=== PATIENT | male | born 1995 | race Caucasian/White ===

== ENCOUNTER 2017-09-22 15:14 | Emergency (ER) | payer BC ==
--- NOTE | 2017-09-22 16:28 | RAD REPORT ---
EXAM DESCRIPTION: CT - CTFB CLINICAL HISTORY: Trauma, facial pain. COMPARISON: None. TECHNIQUE: Axial 2 mm thick images of the face were obtained with sagittal and coronal reconstructio n images. All CT scans are performed using dose optimization technique as appropriate and may include automated exposure control or mA/KV adjustment according to patient size. FINDINGS: No acute facial bone fracture is seen.The mandible is intact. The globes and orbital contents are grossly unremarkable.The paranasal sinuses and mastoids are essen tially clear. IMPRESSION: Negative for facial bone fracture.
--- NOTE | 2017-09-22 16:44 | ER ---
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 Pt denies LOC. Transition of care: patient was not received from another setting of care. Onset of symptoms was September 22, 2017. Initial Sepsis Screen: Does the patient meet any 2 criteria? No. Patient's initial sepsis screen is negative. Does the patient have a suspected source of infection? No. Patient's initial sepsis screen is negative. Care prior to arrival: None. 15:31 Method Of Arrival: Ambulatory la1 15:31 Acuity: MARIA ISABEL 4 la1 Triage Assessment: 16:30 General: Appears in no apparent distress. well developed, well nourished, Behavior is rk2 calm, cooperative. Pain: Complains of pain in face and left side of head and left arm and left forearm. 16:30 Neuro: Level of Consciousness is alert, obeys commands, Oriented to person, place, rk2 time, situation. Respiratory: Airway is patent Respiratory effort is even, unlabored, Respiratory pattern is regular, symmetrical. Derm: Skin is pink, warm \T\ dry. Historical: - Allergies: 15:32 No Known Allergies; la1 - PMHx: 15:32 None; la1 - PSHx: 15:32 None; la1 - Immunization history:: Adult Immunizations. - Social history:: Smoking status: Patient/guardian denies using tobacco, but has a distant history of tobacco abuse. Screenin:30 Abuse screen: Denies threats or abuse. rk2 16:30 Nutritional screening: No deficits noted. Tuberculosis screening: No symptoms or risk rk2 factors identified. Fall Risk None identified. Vital Signs: 15:32 BP 149 / 77; Pulse 97; Resp 15; Temp 98.5; Pulse Ox 100% on R/A; Weight 77.11 kg; la1 Height 5 ft. 8 in. (172.72 cm); 16:30 BP 130 / 67; Pulse 78; Resp 17; Pulse Ox 98% on R/A; rk2 15:32 Body Mass Index 25.85 (77.11 kg, 172.72 cm) ny1 ED Course: 15:15 Patient arrived in ED. mr 15:32 Triage completed. la1 15:32 Arm band placed on left wrist. la1 15:33 Leesa Dubon FNP-C is [facility]. kb 15:33 Josiah Downs MD is Attending Physician. kb 15:34 Kathi Santos, RN is Primary Nurse. rk2 15:51 CT Facial Bones W/O Con Sent. rk2 15:58 CT Facial Bones W/O Con In Process Unspecified. EDMS 15:58 CT completed. Patient moved to CT via wheelchair. Patient moved to radiology. cw1 16:02 X-ray completed. X-ray completed. Patient tolerated procedure well. Patient moved back [facility] from radiology. 16:03 Forearm Left XRAY In Process Unspecified. EDMS 16:30 Patient has correct armband on for positive identification. Bed in low position. Call rk2 light in reach. 17:06 No provider procedures requiring assistance completed. Patient did not have IV access rk2 during this emergency room visit. Administered Medications: No medications were administered Outcome: 16:44 Discharge ordered by . kb 17:06 Discharged to home ambulatory. rk2 17:06 Condition: good 17:06 Discharge instructions given to patient. 17:07 Patient left the ED. rk2 Signatures: Dispatcher [employer] EDNM Leesa Dubon FNP-C FNP-Samina Basilio Rebekah Archer cw1 Giorgio Richards, RN RN la1 Melinda Garcia [facility] Kathi Santos, RN RN rk2
--- NOTE | 2017-09-22 16:44 | EDPHYS ---
Physician Documentation [facility] Name: Eder Andres Age: 22 yrs Sex: Male : 1995 Arrival Date: 09/22/2017 Time: 15:15 Bed 19 Private MD: ED Physician Josiah Downs HPI: 09/22 16:15 This 22 yrs old Male presents to ER via Ambulatory with complaints of Body kb Injuries. 16:15 The patient or guardian complains of contusion, injury, pain, that is acute, swelling, kb tenderness. The complaints affect the left forearm. Context: The problem was sustained at work, resulted from a direct blow, from a heavy object. Onset: The symptoms/episode began/occurred just prior to arrival. Treatment prior to arrival includes: no previous treatment. Modifying factors: The symptoms are alleviated by nothing. the symptoms are aggravated by nothing. Associated signs and symptoms: Pertinent positives: pain, swelling, Pertinent negatives: decreased range of motion, deformity, erythema, fever, nausea, numbness, tingling, vomiting, warmth, weakness. Severity of symptoms: At their worst the symptoms were moderate, in the emergency department the symptoms are unchanged. The patient has not experienced similar symptoms in the past. The patient has not recently seen a physician. Historical: - Allergies: 15:32 No Known Allergies; la1 - PMHx: 15:32 None; la1 - PSHx: 15:32 None; la1 - Immunization history:: Adult Immunizations. - Social history:: Smoking status: Patient/guardian denies using tobacco, but has a distant history of tobacco abuse. ROS: 16:09 Constitutional: Negative for fever, chills, and weight loss, Eyes: Negative for injury, kb pain, redness, and discharge, ENT: Negative for injury, pain, and discharge, Neck: Negative for injury, pain, and swelling, Cardiovascular: Negative for chest pain, palpitations, and edema, Respiratory: Negative for shortness of breath, cough, wheezing, and pleuritic chest pain, Abdomen/GI: Negative for abdominal pain, nausea, vomiting, diarrhea, and constipation, Back: Negative for injury and pain, : Negative for injury, bleeding, discharge, and swelling, Neuro: Negative for headache, weakness, numbness, tingling, and seizure. 16:09 MS/extremity: Positive for injury or acute deformity, abrasion, ecchymosis, pain, swelling, tenderness, of the left forearm. 16:09 Skin: Positive for ecchymosis, of the left side of head. Exam: 16:11 Constitutional: This is a well developed, well nourished patient who is awake, alert, kb and in no acute distress. ENT: Nares patent. No nasal discharge, no septal abnormalities noted. Tympanic membranes are normal and external auditory canals are clear. Oropharynx with no redness, swelling, or masses, exudates, or evidence of obstruction, uvula midline. Mucous membranes moist. Neck: Trachea midline, no thyromegaly or masses palpated, and no cervical lymphadenopathy. Supple, full range of motion without nuchal rigidity, or vertebral point tenderness. No Meningismus. Chest/axilla: Normal chest wall appearance and motion. Nontender with no deformity. No lesions are appreciated. Cardiovascular: Regular rate and rhythm with a normal S1 and S2. No gallops, murmurs, or rubs. Normal PMI, no JVD. No pulse deficits. Respiratory: Lungs have equal breath sounds bilaterally, clear to auscultation and percussion. No rales, rhonchi or wheezes noted. No increased work of breathing, no retractions or nasal flaring. Abdomen/GI: Soft, non-tender, with normal bowel sounds. No distension or tympany. No guarding or rebound. No evidence of tenderness throughout. Neuro: Awake and alert, GCS 15, oriented to person, place, time, and situation. Cranial nerves II-XII grossly intact. Motor strength 5/5 in all extremities. Sensory grossly intact. Cerebellar exam normal. Normal gait. 16:11 Head/face: Noted is no obvious of injury or deformity except contusion, that is superficial, of the left side of head. 16:11 Musculoskeletal/extremity: Extremities: grossly normal except: noted in the left forearm: contusion, ecchymosis, pain, swelling, tenderness, ROM: limited active range of motion due to pain, in the left forearm, Circulation is intact in all extremities. Sensation intact. Vital Signs: 15:32 BP 149 / 77; Pulse 97; Resp 15; Temp 98.5; Pulse Ox 100% on R/A; Weight 77.11 kg; la1 Height 5 ft. 8 in. (172.72 cm); 16:30 BP 130 / 67; Pulse 78; Resp 17; Pulse Ox 98% on R/A; rk2 15:32 Body Mass Index 25.85 (77.11 kg, 172.72 cm) la1 MDM: 15:33 Patient medically screened. kb 16:10 Data reviewed: vital signs, nurses notes. Data interpreted: Pulse oximetry: on room air kb is 100 %. Interpretation: normal. 16:41 Counseling: I had a detailed discussion with the patient and/or guardian regarding: the kb historical points, exam findings, and any diagnostic results supporting the discharge/admit diagnosis, radiology results, the need for outpatient follow up, a family practitioner, to return to the emergency department if symptoms worsen or persist or if there are any questions or concerns that arise at home. 09/22 15:39 Order name: CT Facial Bones W/O Con; Complete Time: 16:30 kb 09/22 15:39 Order name: Forearm Left XRAY; Complete Time: 16:57 kb Administered Medications: No medications were administered Disposition: 09/22/17 16:44 Discharged to Home. Impression: Contusion of left forearm, Contusion of unspecified part of head. - Condition is Stable. - Discharge Instructions: Contusion, [id number]. - Medication Reconciliation Form, Thank You Letter, Antibiotic Education, Prescription Opioid Use form. - Work release form (09/22/17 17:28). iw - Follow up: Emergency Department; When: As needed; Reason: Worsening of condition. Follow up: Private Physician; When: 2 - 3 days; Reason: Recheck today's complaints, Continuance of care, Re-evaluation by your physician. Addendum: 09/24/2017 15:20 Co-signature as Attending Physician, Josiah Downs MD I agree with the assessment and c green plan of care. Signatures: Dispatcher [employer] EDLeesa Andino, MILDRED TORO-Josiah Holman MD MD cha Attema, Lee, RN RN la1 Kathi Santos RN RN rk2 Flores Bang RN iw
--- NOTE | 2017-09-22 16:53 | RAD REPORT ---
EXAM DESCRIPTION: RAD - Forearm Left - 09/22/2017 4:05 pm CLINICAL HISTORY: Trauma, left forearm pain COMPARISON: None. FINDINGS: No fracture or dislocation is seen.
== END 2017-09-22 17:07 | disposition home or self-care (01) ==
LOC: ER 15:14
DX: S50.12XA Contusion of left forearm, initial encounter (principal); S00.93XA Contusion of unspecified part of head, initial encounter; W22.8XXA Striking against or struck by other objects, initial encounter; Y93.9 Activity, unspecified; Y92.89 Other specified places as the place of occurrence of the external cause
CPT/HCPCS: 70486; 76377; 99284